=== PATIENT | female | born 1995 | race Caucasian/White ===

== ENCOUNTER 2017-12-24 17:08 | Emergency (ER) ==
[2017-12-24 17:13] VITALS: BP 129/84; TEMP 98.2; BMI 33.6
[2017-12-24] MEDS ORDERED: LIDOCAINE HCL 1% SDV SUBCUT STA (17:13)
[2017-12-24] MEDS ORDERED: TENIVAC IM ONE (17:13)
--- NOTE | 2017-12-24 17:21 | ED.PDOC ---
General ED Provider: Dr. MARCIAL LOCO Chief Complaint: Puncture Wound Stated Complaint: PUNCTURE WOUND SOLE OF LEFT FOOT Time Seen by Physician: 17:17 (SEE PHOTOS) Mode of Arrival: Walk-In Information Source: Patient Exam Limitations: No limitations Nursing and Triage Documentation Reviewed and Agree: Yes Does patient meet sepsis criteria?: No If yes, has appropriate treatment been initiated?: No System Inflammatory Response Syndrome: Not Applicable Sepsis Protocol: For patient's 13 years and over: Temp is 96.8 and below OR 101 and greater Pulse >90 BPM Resp >20/minute Acutely Altered Mental Status Are patient's symptoms suggestive of a new infection, such as: -Pneumonia -Skin, Soft Tissue -Endocarditis -UTI -Bone, Joint Infection -Implantable Device -Acute Abdominal Infection -Wound Infection -Meningitis -Blood Stream Catheter Infection -Unknown Musculoskeletal Complaint Exam - Ankle/Foot Complaint/Exam Location of Injury: Reports: Left, Foot Mechanism of Injury: Reports: Trauma (PUNCTURE WOUND ) Onset/Duration: 20 MIN Symptoms Are: Reports: Still present Onset of Pain: Reports: Immediate Current Severity: Mild Location: Reports: Discrete Character: Reports: Aching Alleviating: Reports: Rest Aggravating: Reports: Movement Able to Bear Weight: Yes Associated Signs and Symptoms: Denies: Swelling, Redness, Bruising, Fever, Weakness, Numbness, Tingling (PUNCTURE WOUND SEE PHOTOS) Gout Risk Factors: Reports: None Related Surgical History: Reports: None Differential Diagnosis: Puncture Wound Review of Systems - Review Of Systems Constitutional: Reports: No symptoms Eyes: Reports: No symptoms Ears, Nose, Mouth, Throat: Reports: No symptoms Respiratory: Reports: No symptoms Cardiac: Reports: No symptoms GI: Reports: No symptoms : Reports: No symptoms Musculoskeletal: Reports: Other (PUNCTURE WOUND LEFT FOOT ) Skin: Reports: No symptoms Neurological: Reports: No symptoms Endocrine: Reports: No symptoms Hematologic/Lymphatic: Reports: No symptoms All Other Systems: Reviewed and Negative Past Medical History - Past Medical History Previously Healthy: Yes Endocrine: Reports: None Cardiovascular: Reports: None Respiratory: Reports: None Hematological: Reports: None Gastrointestinal: Reports: None Genitourinary: Reports: None Neuro/Psych: Reports: None Musculoskeletal: Reports: None Cancer: Reports: None Last Menstrual Period: LAST MONTH - Surgical History General Surgical History: Reports: None - Family History Family History: Reports: None - Social History Smoking Status: Never smoker Hx Substance Use: No Alcohol Screening: None - Immunizations Tetanus Shot up to Date: No Physical Exam - Physical Exam Appearance: Well-appearing, No pain distress, Well-nourished Eyes: GLORIA, EOMI, Conjunctiva clear ENT: Ears normal, Nose normal, Oropharynx normal Respiratory: Airway patent, Breath sounds clear, Breath sounds equal, Respirations nonlabored Cardiovascular: RRR, Pulses normal, No rub, No murmur GI/: Soft, Nontender, No masses, Bowel sounds normal, No Organomegaly Musculoskeletal: Normal strength, ROM intact (2 MM PUNCTURE WOUND SOLE LEFT FOOT SEE PHOTOS ) Skin: Warm, Dry, Normal color Neurological: Sensation intact, Motor intact, Reflexes intact, Cranial nerves intact, Alert, Oriented Psychiatric: Affect appropriate, Mood appropriate Critical Care Note - Critical Care Note Total Time (mins): 0 Course - Course Orders, Labs, Meds: Orders Category Date Time Status Tetanus and Diphtheria Tox/Pf [Tenivac] MEDS 12/24/17 17:13 Once 0.5 ml IM .ONCE ONE FOOT, LEFT 3 VIEWS Stat RADS 12/24/17 17:18 Ordered Medications Discontinued Medications Generic Name Dose Route Start Last Admin Trade Name Freq PRN Reason Stop Dose Admin Tetanus/Diphtheria Toxoids Adsorbed 0.5 ml 12/24/17 17:13 Tenivac IM 12/24/17 17:14 .ONCE ONE Vital Signs: Temp Pulse Resp BP Pulse Ox 12/24/17 17:10 98.2 F 97 H 16 129/84 95 Departure - Departure Time of Disposition: 18:00 (THE WOODEN FRAGMENT WAS REMOVED AND THE WOUND CLEANSE EXTENSIVELY WITH SHURE CLEANSE ) Disposition: HOME SELF-CARE Discharge Problem: Puncture wound, Wound Instructions: Puncture Wound (ED) Condition: Good Pt referred to PMD for follow-up: Yes IPMP verified?: No Additional Instructions: Please call your Family Physician as soon as possible to schedule a follow-up appointment. Allergies/Adverse Reactions: Allergies No Known Allergies Allergy (Unverified 12/24/17 17:13) Home Medications: Ambulatory Orders 1 [No Reported Medications] 12/24/17
--- NOTE | 2017-12-25 06:09 | DI ---
Exam: Left foot three-view HISTORY: Penetrating injury Findings / impression: Markers are placed in the area concern on the plantar surface of the foot at the level of the metatarsophalangeal joints. No radiopaque foreign body is seen. No bony or articul ar abnormality is seen. Negative exam.
== END 2017-12-24 17:55 | disposition home or self-care (01) ==
LOC: ED 17:08
DX: S91.342A Puncture wound with foreign body, left foot, initial encounter (principal)
CPT/HCPCS: 90471; 90714; 99283